=== PATIENT | female | born 1960 | race Caucasian/White ===

== ENCOUNTER 2021-05-27 22:47 | Emergency (ER) | payer BC, SELFPAY ==
[2021-05-27 22:49] VITALS: BP 153/94; PULSE 96; RESP 16; TEMP 36.4; O2SAT 99
--- NOTE | 2021-05-27 23:23 | ED.GENADULT ---
HPI - General Adult General Chief complaint: Unspecified Stated complaint: I'm bleeding from my belly button Time Seen by Provider: 05/27/21 22:55 Source: patient Mode of arrival: ambulatory Limitations: no limitations History of Present Illness HPI narrative: Patient is a 61-year-old female who presents to the ED with complaints of bleeding from her umbilicus. Patient reports over the last couple weeks, she has had cottage cheese/dark brown drainage from her umbilicus. She has been cleaning her umbilicus regularly, and denies putting any foreign objects into her umbilicus. Tonight, she reports she went to the bathroom to urinate and noticed blood flowing down from her umbilicus, thus prompting her to come to the ED. She denies straining on the toilet. Patient was able to control the bleeding at home. She denies any fever, chills, abdominal pain, back pain, vaginal bleeding, rectal bleeding, or recent heavy lifting strenuous activity. Related Data Allergies Allergy/AdvReac Type Severity Reaction Status Date / Time No Known Allergies Allergy Verified 05/27/21 23:11 Review of Systems Review of Systems: CONSTITUTIONAL: Denies fever, chills, or sweats. CARDIOVASCULAR: Denies chest pain. RESPIRATORY: Denies cough. GASTROINTESTINAL: Reports umbilicus bleeding and discharge. Denies abdominal pain, nausea, vomiting, constipation, rectal bleeding, diarrhea. GENITOURINARY: Denies dysuria, hematuria, vagina bleeding. SKIN: Denies rash or itching. MUSCULOSKELETAL: Denies back pain. All systems reviewed & are unremarkable except as noted in HPI and below PMFSH Past Medical History Medical History Hyperlipidemia Hypertension Hypothyroidism Surgical History Surgical History History of cholecystectomy Social History Social History (Updated 05/27/21 @ 23:44 by Alyssa Frost PA-C) Smoking status: Never smoker Exam Narrative: GENERAL: Well appearing, obese, non-toxic, in no acute distress. HEAD: Normocephalic, atraumatic. NECK: Supple. Normal ROM. RESPIRATORY: Airway patent, respirations nonlabored. Clear to auscultation bilaterally, no rales, rhonchi, wheezing. CARDIOVASCULAR: Regular rate and rhythm without murmurs, rubs, or gallops. ABDOMINAL: Soft, nontender, nondistended, no hepatosplenomegaly. Normoactive BS. Odorous umbilicus without evidence of discharge present. Few punctate holes in skin overlying umbilicus with superficial blood vessels noted. Erythema surrounding breaks in skin. Dried blood in interior of umbilicus. MUSCULOSKELETAL: Moves all extremities. Strength/ROM intact without gross deformities or TTP SKIN: Warm, dry, no rashes. NEURO: A&O X3. Speech clear. Steady gait. PSYCHIATRIC: Appropriate mood and affect. Normal interaction. Course Vital Signs Vital signs: Vital Signs Temperature 97.6 F 05/27/21 22:49 Pulse Rate 96 05/27/21 22:49 Respiratory Rate 16 05/27/21 22:49 Blood Pressure 153/94 H 05/27/21 22:49 Pulse Oximetry 99 05/27/21 22:49 Temperature 97.6 F 05/27/21 22:49 Pulse Rate 96 05/27/21 22:49 Respiratory Rate 16 05/27/21 22:49 Blood Pressure 153/94 H 05/27/21 22:49 Pulse Oximetry 99 05/27/21 22:49 Medical Decision Making MDM Narrative Medical decision making narrative: Patient presents to the ED with complaints of bleeding from her umbilicus. On clinical examination, the patient has a few punctate breaks in her skin overlying her umbilicus. There is surrounding erythema and irritation with superficial blood vessels noted. Discussed with the patient that this is likely the cause of her bleeding, much like a varicose vein. Also discussed that the drainage she has been experiencing over the last few weeks may have been caused by a fungal yeast infection, causing her skin to be friable. No signs of incarcerated or strangulated hernia and patient is not
== END 2021-05-27 23:40 | disposition home or self-care (01) ==
LOC: ANHED 23:31
PROVIDERS: Emergency Provider Emergency Medicine
DX: R19.8 Other specified symptoms and signs involving the digestive system and abdomen (principal); B37.2 Candidiasis of skin and nail; E78.5 Hyperlipidemia, unspecified; I10 Essential (primary) hypertension; E03.9 Hypothyroidism, unspecified
CPT/HCPCS: 99283